=== PATIENT | female | born 1935 | race Caucasian/White ===

== ENCOUNTER → 2016-09-12 | Outpatient (CLI) | payer MEDICARE, BC, OTHER ==
[~2016-09-12] MED LIST: ACET-654 PO; CETI10TA PO; DYAZ37.5 PO; LEVO50TA5 PO; NORC1TAB4 PO
--- NOTE | 2016-09-12 10:35 | REP ---
Right foot four views : There is no fracture or dislocation. Mineralization and joint spaces are normal. There are no calcifications or foreign bodies. Impression: Negative right foot . Signed by Moisés Noe MD 09/12/2016 10:27 A
== END ==
LOC: M RAD 09:52
PROVIDERS: ATTEND Nurse Practitioner
DX: M79.671 Pain in right foot (principal)

== ENCOUNTER → 2016-09-26 | Outpatient (CLI) | payer MEDICARE, OTHER | LOC: M PAIN 15:20 | PROVIDERS: ATTEND Nurse Practitioner Family | DX: G89.29 Other chronic pain (principal); M79.671 Pain in right foot; D64.9 Anemia, unspecified; I10 Essential (primary) hypertension; E07.9 Disorder of thyroid, unspecified; J42 Unspecified chronic bronchitis; R73.03 Prediabetes; Z79.1 Long term (current) use of non-steroidal anti-inflammatories (NSAID); Z79.899 Other long term (current) drug therapy; Z87.891 Personal history of nicotine dependence; Z90.49 Acquired absence of other specified parts of digestive tract ==

== ENCOUNTER → 2016-10-05 | Outpatient (CLI) | payer MEDICARE, BC, OTHER ==
[~2016-10-05] MED LIST changes: -ACET-654 PO; +ACET1TAB17 PO
--- NOTE | 2016-10-05 15:12 | REP ---
MRI STUDY OF THE RIGHT FOOT WITHOUT CONTRAST: HISTORY: Pain in the right foot. Pain worse dorsally and medially. Comparison radiographs September 12, 2016. TECHNIQUE: Sagittal axial and coronal imaging planes are utilized. T1 proton density T2-weighted scans are included with and without fat saturation. MRI FINDINGS: There is markedly abnormal increased T2 signal with some corresponding decreased T1 signal in the this patient's right midfoot including the navicula, cuboid, and all three cuneiform bones. There is some increased signal intensity in the proximal end of the metatarsals numbered 2, 3, and to some degree 4. There is periarticular soft tissue edema and some swelling diffusely in the midfoot. No significant joint effusion is seen. No fracture is evident. No bony erosive change is appreciated. No mass lesion is observed. IMPRESSION: Markedly abnormal increased T2 decreased T1-weighted signal intensity in the midfoot tarsal bones and in several of the proximal metatarsals. Stress response, transient marrow edema syndrome versus extensive contusion post trauma. Signed by Leo Diaz MD 10/05/2016 03:35 P
== END ==
LOC: M RAD 12:57
PROVIDERS: ATTEND Nurse Practitioner Family
DX: M79.671 Pain in right foot (principal); J42 Unspecified chronic bronchitis; I10 Essential (primary) hypertension; D50.9 Iron deficiency anemia, unspecified; E03.9 Hypothyroidism, unspecified; M11.20 Other chondrocalcinosis, unspecified site

== ENCOUNTER → 2016-10-11 | Outpatient (CLI) | payer MEDICARE, BC, OTHER ==
--- NOTE | 2016-10-24 00:29 | ECWPNPC ---
PATIENT NAME: SHAAN SINHA : 1935 GENDER: FEMALE VISIT DATE: 10/11/2016 DISCHARGE DATE: 10/11/16 1241 VISIT LOCKED DATE TIME: PHYSICIAN: ARIANA COONEY RESOURCE: ARIANA COONEY REASON FOR APPOINTMENT 1. R FOOT PAIN HISTORY OF PRESENT ILLNESS HISTORY OF PRESENT ILLNESS: HERE FOR F/U ON RIGHT FOOT PAIN.WAS STARTED ON PREDNISONE 5 DAYS AGO BY GHANSHYAM OLIVER [facility].GABAPENTIN 100MG TID IS SOMEWHAT HELPFUL.DENIES SIDE EFFECTS.MRI RIGHT FOOT REVIEWED.SHOWING MARKED SWELLING IN MIDFOOT AND NO EVIDENCE OF FRACTURE OR MASS LESION.RATING PAIN VAS 4/10. PAIN THE PATIENT DESCRIBES THE PAIN... FALL RISK SCREENING: SCREENING :NO FALLS IN THE PAST YEAR CURRENT MEDICATIONS TAKING LEVOTHYROXINE SODIUM 50 MCG TABLET 1 TABLET ON AN EMPTY STOMACH IN THE MORNING ORALLY ONCE A DAY TAKING ANORO ELLIPTA 62.5-25 MCG/INH AEROSOL POWDER BREATH ACTIVATED 1 PUFF INHALATION ONCE A DAY TAKING FERROUS SULFATE 325 (65 FE) MG TABLET 1 TABLET ORALLY ONCE A DAY TAKING TRIAMTERENE-HCTZ 37.5-25 MG TABLET 1 TABLET IN THE MORNING ORALLY ONCE A DAY TAKING GABAPENTIN 100 MG CAPSULE DIRECTED ORALLY TID TAKING LIDOCAINE-PRILOCAINE 2.5-2.5 % CREAM DIRECTED EXTERNALLY APPLY SMALL AMOUNT TO PAINFUL FOOT AREA Q 6 HRS PRN PAIN TAKING VALTREX 1 GM TABLET 1 TABLET ORALLY TID TAKING PREDNISONE 10 MG TABLET 1 TABLET DIRECTED ORALLY 4 TABS X 3 DAYS 3 TABS X 3 DAYS 2 TABS X 3 DAYS 1 TAB X 3 DAYS TAKING ACYCLOVIR 5 % OINTMENT 1 APPLICATION EXTERNALLY TO RIGHT FOOT SIX TIMES A DAY TAKING TURMERIC CURCUMIN 500 MG CAPSULE ORALLY NOT-TAKING IBUPROFEN 200 MG TABLET 1 TABLET WITH FOOD OR MILK NEEDED ORALLY EVERY 6 HRS MEDICATION LIST REVIEWED AND RECONCILED WITH THE PATIENT PAST MEDICAL HISTORY PSEUDOGOUT HYPERTENSION HYPOTHYROIDISM BORDERLINE DIABETES-DIET CONTROLLED ANEMIA ( DONATES BLOOD REGULARILY) COLONOSCOPY IN [place], NO POLYPS, DIVERTICULOSIS-ASYMPTOMATIC DECREASED HEARING (HEARING AIDES DID NOT WORK) CARDIAC STRESS TEST AND ECHO IN [facility]-REPORTED NORMAL PFT'S IN [facility]-REPORTED NORMAL-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 REVIEW OF SYSTEMS REVIEWED BY: PROVIDER: ARIANA COONEY EVP AND CHIEF OPERATING OFFICER . CONSTITUTIONAL: ANY CHANGE IN YOUR MEDICAL CONDITION? YES PT SAW PRIMARY 10/05, AND WAS PUT ON A PREDNISONE TAPER, ACYCLOVIR AND VALCYCLOVIR FOR HER RIGHT FOOT SWELLING/PAIN. PT REPORTS SHE STILL CAN'T BEAR WEIGHT ON IT, BURNING HAS IMPROVED, BUT NOW STATES IT IS A CONSTANT ACHY FEELING. SWELLING HAS IMPROVED.&NBSP;. CHILLS &NBSP;&NBSP; NO&NBSP;. FEVER &NBSP;&NBSP; NO&NBSP;. INFECTION: DO YOU HAVE NEW INFECTIONS? NO . DO YOU HAVE HISTORY OF MRSA? NO . MUSCULOSKELETAL: ANY NEW PATTERNS OF PAIN OR NUMBNESS? NO . GASTROENTEROLOGY: ANY NEW CHANGE IN BOWEL CONTROL? NO . GENITOURINARY: ANY NEW CHANGE IN BLADDER CONTROL? NO . IS THERE A CHANCE YOU COULD BE ? NO . HEMATOLOGY/LYMPH: DO YOU TAKE ANY BLOOD THINNERS? (FOR EXAMPLE- COUMADIN, PLAVIX, AGGRENOX, PLATEL, PRADAXA, OR XARELTO) NO . WHEN WAS YOUR LAST DOSE? DATE: TIME: . NEUROLOGY: HAVE YOU FALLEN IN THE PAST 6 MONTHS? NO . ANY NEW EXTREMITY NUMBNESS OR WEAKNESS? NO . CARDIOLOGY: DO YOU HAVE A PACEMAKER OR DEFIBRILLATOR? NO . RESPIRATORY: HAVE YOU BEEN SICK IN THE PAST WEEK? NO . FEVER NO . FLU LIKE SYMPTOMS? NO . COUGH NO . INTEGUMENTARY: DO YOU HAVE ANY RASHES OR OPEN SORES? NO . ALLERGIC/IMMUNO: ARE YOU ALLERGIC TO SHELLFISH OR IV DYE? NO . ANY NEW ALLERGIES? NO . PSYCHIATRIC: DO YOU HAVE THOUGHTS OF HURTING YOURSELF OR SOMEONE ELSE? NO . ARE YOU ABUSED, NEGLECTED, OR IN AN UNSAFE ENVIRONMENT? NO . ENDOCRINOLOGY: ARE YOU DIABETIC? NO . OTHER: DO YOU NEED ANY PRESCRIPTIONS? NO . IF YES, PLEASE LIST: ____ . ANY NEW PROBLEMS WITH YOUR MEDICATIONS? NO . WHEN DID YOU LAST EAT? ____ . WHEN DID YOU LAST DRINK? ____ . WHAT DID YOU LAST DRINK? ____ . NAME OF PERSON DRIVING YOU HOME? ____ . DO YOU HAVE ANY OTHER QUESTIONS OR CONCERNS NO . VITAL SIGNS WT 110.8 LBS, HT 61", BMI 20.93 INDEX, BP 144/77 MM HG, HR 83 /MIN, RR 16 /MIN, TEMP 97.0 F, OXYGEN SAT % 94%, SAFE IN ENV? (Y/N) YES, NA INITIALS AL 12:14, REVIEWED BY: BRANDON. EXAMINATION GENERAL EXAMINATION: GENERAL APPEARANCE:UNCOMFORTABLE,RUBBING RIGHT FOOT. PSYCHDEPRESSED. HEENT:NORMOCEPHALIC,PERRLA. LUNGS:LUNG KIDD ARE CLEAR TO AUSCULTATION BILATERALLY. GOOD MOVEMENT OF AIR. HEART:S1, S2 IN A REGULAR RATE AND RHYTHM. NO SIGNIFICANT MURMURS, RUBS OR GALLOPS NOTED. ABDOMEN:SOFT AND NOT TENDER. DIAGNOSTIC DATA-XRAY RIGHT FOOT-NEGATIVE. ANKLE / FOOT: FOOT:RIGHT=DORSAL HYPERSENSITIVITY TO LIGHT TOUCH.LINEAR FAINT 3MM MACULAR RASH.. INSPECTION:3-4CM CIRCULAR PINK MACULAR LESION DISTAL ASPECT RIGHT V[place]. RANGE OF MOTION:UNREMARKABLE. ASSESSMENTS RIGHT FOOT PAIN - M79.671 (PRIMARY) TREATMENT RIGHT FOOT PAIN INCREASE GABAPENTIN TABLET, 300 MG, DIRECTED, ORALLY, TID, 30 DAY(S), 90, REFILLS 0 PROCEDURE CODES FA211 ESTABILISHED PATIENT [facility] FACILITY CHARGE G8730 PAIN ASSESS POS TOOL F/U PLAN DOC G8427 DOC MEDS VERIFIED W/PT OR RE DISPOSITION & COMMUNICATION FOLLOW UP 4 WEEKS ELECTRONICALLY SIGNED BY LIONEL MEZA ON 10/23/2016 AT 04:31 PM EDT DISCLAIMER : THIS IS A VISIT SUMMARY EXTRACTED FROM THE [employer] CHART. IT IS NOT A COPY OF THE [employer] PROGRESS NOTE. MTDD
== END ==
LOC: M PAIN 12:00
PROVIDERS: ATTEND Nurse Practitioner Family
DX: G89.29 Other chronic pain (principal); M79.671 Pain in right foot; I10 Essential (primary) hypertension; E03.9 Hypothyroidism, unspecified; M10.9 Gout, unspecified; R73.03 Prediabetes; D64.9 Anemia, unspecified; Z79.52 Long term (current) use of systemic steroids; Z79.899 Other long term (current) drug therapy

== ENCOUNTER → 2016-11-08 | Outpatient (CLI) | payer MEDICARE, BC, OTHER ==
--- NOTE | 2016-11-09 00:34 | ECWPNPC ---
PATIENT NAME: SHAAN SINHA : 1935 GENDER: FEMALE VISIT DATE: 11/08/2016 DISCHARGE DATE: 11/08/16 1258 VISIT LOCKED DATE TIME: PHYSICIAN: ARIANA COONEY RESOURCE: ARIANA COONEY REASON FOR APPOINTMENT 1. R FOOT HISTORY OF PRESENT ILLNESS HISTORY OF PRESENT ILLNESS: HERE FOR F/U AND MANAGEMENT OF RIGHT FOOT PAIN.RATING PAIN VAS 0/10.STATES PAIN WENT AWAY DAY AFTER LAST DOSE OF PREDNISONE.CURRENTLY TAKING GABAPENTIN 100MG DAILY.PATIENT WANTS TO DISCONTINUE.FULL WEIGHT BEARING WITHOUT PAIN. PAIN THE PATIENT DESCRIBES THE PAIN... FALL RISK SCREENING: SCREENING :NO FALLS IN THE PAST YEAR CURRENT MEDICATIONS TAKING LEVOTHYROXINE SODIUM 50 MCG TABLET 1 TABLET ON AN EMPTY STOMACH IN THE MORNING ORALLY ONCE A DAY TAKING ANORO ELLIPTA 62.5-25 MCG/INH AEROSOL POWDER BREATH ACTIVATED 1 PUFF INHALATION ONCE A DAY TAKING TRIAMTERENE-HCTZ 37.5-25 MG TABLET 1 TABLET IN THE MORNING ORALLY ONCE A DAY TAKING TURMERIC CURCUMIN 500 MG CAPSULE ORALLY TAKING GABAPENTIN 300 MG TABLET DIRECTED ORALLY TID NOT-TAKING FERROUS SULFATE 325 (65 FE) MG TABLET 1 TABLET ORALLY ONCE A DAY NOT-TAKING LIDOCAINE-PRILOCAINE 2.5-2.5 % CREAM DIRECTED EXTERNALLY APPLY SMALL AMOUNT TO PAINFUL FOOT AREA Q 6 HRS PRN PAIN NOT-TAKING VALTREX 1 GM TABLET 1 TABLET ORALLY TID NOT-TAKING PREDNISONE 10 MG TABLET 1 TABLET DIRECTED ORALLY 4 TABS X 3 DAYS 3 TABS X 3 DAYS 2 TABS X 3 DAYS 1 TAB X 3 DAYS NOT-TAKING ACYCLOVIR 5 % OINTMENT 1 APPLICATION EXTERNALLY TO RIGHT FOOT SIX TIMES A DAY NOT-TAKING IBUPROFEN 200 MG TABLET 1 TABLET WITH FOOD OR MILK NEEDED ORALLY EVERY 6 HRS MEDICATION LIST REVIEWED AND RECONCILED WITH THE PATIENT PAST MEDICAL HISTORY PSEUDOGOUT HYPERTENSION HYPOTHYROIDISM BORDERLINE DIABETES-DIET CONTROLLED ANEMIA ( DONATES BLOOD REGULARILY) COLONOSCOPY IN [place], NO POLYPS, DIVERTICULOSIS-ASYMPTOMATIC DECREASED HEARING (HEARING AIDES DID NOT WORK) CARDIAC STRESS TEST AND ECHO IN [facility]-REPORTED NORMAL PFT'S IN [facility]-REPORTED NORMAL-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 SURGICAL HISTORY SMALL BOWEL RESECTION 11/01/2015 BILATERAL CATARACTS REMOVED YEARS AGO BILATERAL CARPEL TUNNEL YEARS AGO APPENDECTOMY AGE 19 THEN ADHESIONS WRAPPED AROUND SMALL BOWEL CAUSING SURGERY 2016 OF BOWELS YEARS AGO HYSTERECTOMY AGE 32 TONSILECTOMY AGE 11 REVIEW OF SYSTEMS REVIEWED BY: PROVIDER: ARIANA FLOWERS . CONSTITUTIONAL: ANY CHANGE IN YOUR MEDICAL CONDITION? YES, PAIN HAS RESOLVED . CHILLS NO . FEVER NO . INFECTION: DO YOU HAVE NEW INFECTIONS? NO . DO YOU HAVE HISTORY OF MRSA? NO . MUSCULOSKELETAL: ANY NEW PATTERNS OF PAIN OR NUMBNESS? NO . GASTROENTEROLOGY: ANY NEW CHANGE IN BOWEL CONTROL? NO . GENITOURINARY: ANY NEW CHANGE IN BLADDER CONTROL? NO . IS THERE A CHANCE YOU COULD BE ? NO . HEMATOLOGY/LYMPH: DO YOU TAKE ANY BLOOD THINNERS? (FOR EXAMPLE- COUMADIN, PLAVIX, AGGRENOX, PLATEL, PRADAXA, OR XARELTO) NO . WHEN WAS YOUR LAST DOSE? DATE: TIME: . NEUROLOGY: HAVE YOU FALLEN IN THE PAST 6 MONTHS? NO . ANY NEW EXTREMITY NUMBNESS OR WEAKNESS? NO . CARDIOLOGY: DO YOU HAVE A PACEMAKER OR DEFIBRILLATOR? NO . RESPIRATORY: HAVE YOU BEEN SICK IN THE PAST WEEK? NO . FEVER NO . FLU LIKE SYMPTOMS? NO . COUGH NO . INTEGUMENTARY: DO YOU HAVE ANY RASHES OR OPEN SORES? NO . ALLERGIC/IMMUNO: ARE YOU ALLERGIC TO SHELLFISH OR IV DYE? NO . ANY NEW ALLERGIES? NO . PSYCHIATRIC: DO YOU HAVE THOUGHTS OF HURTING YOURSELF OR SOMEONE ELSE? NO . ARE YOU ABUSED, NEGLECTED, OR IN AN UNSAFE ENVIRONMENT? NO . ENDOCRINOLOGY: ARE YOU DIABETIC? NO . OTHER: DO YOU NEED ANY PRESCRIPTIONS? NO . IF YES, PLEASE LIST: ____ . ANY NEW PROBLEMS WITH YOUR MEDICATIONS? NO . WHEN DID YOU LAST EAT? ____ . WHEN DID YOU LAST DRINK? ____ . WHAT DID YOU LAST DRINK? ____ . NAME OF PERSON DRIVING YOU HOME? ____ . DO YOU HAVE ANY OTHER QUESTIONS OR CONCERNS NO . VITAL SIGNS WT 112.8 LBS, HT 61", BMI 21.31 INDEX, BP 146/71 MM HG, HR 78 /MIN, RR 16 /MIN, TEMP 96.8 F, OXYGEN SAT % 95%, SAFE IN ENV? (Y/N) Y, NA INITIALS AC 1204, REVIEWED BY: EM. EXAMINATION GENERAL EXAMINATION: GENERAL APPEARANCE:COMFORTABLE,HAPPY. PSYCHAFFECT NORMAL. HEENT:NORMOCEPHALIC,PERRLA. LUNGS:LUNG KIDD ARE CLEAR TO AUSCULTATION BILATERALLY. GOOD MOVEMENT OF AIR. HEART:S1, S2 IN A REGULAR RATE AND RHYTHM. NO SIGNIFICANT MURMURS, RUBS OR GALLOPS NOTED. ANKLE / FOOT: FOOT:RIGHT, NORMAL EXAM. ASSESSMENTS RIGHT FOOT PAIN - M79.671 (PRIMARY) TREATMENT RIGHT FOOT PAIN STOP GABAPENTIN TABLET, 300 MG, DIRECTED, ORALLY, TID NOTES: FALLS CARE PLAN: 1. RECOMMEND REMOVING ALL THROW RUGS. 2. RECOMMEND NIGHT LIGHTS 3. RECOMMEND WEARING RUBBER SOLED SHOES AND TO NOT GO BAREFOOT. 4.. ADVISED TO CHANGE POSITION SLOWLY FROM SUPINE TO STANDING TO AVOID DIZZINESS. 5. ADVISED TO USE ASSISTIVE DEVICE SUCH CANE OR WALKER 6. USE [employer] OR KEEP PORTABLE PHONE READILY AVAILABLE. PROCEDURE CODES FA211 ESTABILISHED PATIENT [facility] FACILITY CHARGE G8783 BP SCR PRFRM RCMDD DEFIND SCR INTVL G8730 PAIN ASSESS POS TOOL F/U PLAN DOC 3016F PT SCRND UNHLTHY OH USE 1036F TOBACCO NON-USER 0518F FALL PLAN OF CARE DOCD G8427 DOC MEDS VERIFIED W/[place] 3288F FALL RISK ASSESSMENT DOCD 1124F ACP DISCUSS-NO [id number] DOCD DISPOSITION & COMMUNICATION FOLLOW UP PT WILL CALL ELECTRONICALLY SIGNED BY LIONEL MEZA ON 11/08/2016 AT 01:16 PM EDT DISCLAIMER : THIS IS A VISIT SUMMARY EXTRACTED FROM THE [employer] CHART. IT IS NOT A COPY OF THE [employer] PROGRESS NOTE. MTDD
== END ==
LOC: M PAIN 12:00
PROVIDERS: ATTEND Nurse Practitioner Family
DX: G89.29 Other chronic pain (principal); M79.671 Pain in right foot; I10 Essential (primary) hypertension; E03.9 Hypothyroidism, unspecified; R73.03 Prediabetes; D64.9 Anemia, unspecified; H91.93 Unspecified hearing loss, bilateral; Z79.899 Other long term (current) drug therapy

== ENCOUNTER → 2024-10-13 | Outpatient (CLI) | payer MEDICARE, BC ==
[~2024-10-13] MED LIST changes: -ACET1TAB17 PO; +ACET1TAB55 PO; -NORC1TAB4 PO; +NORC1TAB7 PO
[2024-10-13 16:18] LABS: ALT/SGPT 11.0 U/L (7.0-40); AST/SGOT 22.0 U/L (<34); CALCIUM LEVEL 9.6 MG/DL (8.3-10.6); CARBON DIOXIDE LEVEL 32.0 MMOL/L (20-31); CHLORIDE LEVEL 93.0 MMOL/L (98-107); CHOLESTEROL LEVEL 212.0 MG/DL (<200); CHOLESTEROL RISK RATIO 2.23 (<5); CREATININE FOR GFR 0.51 MG/DL (0.55-1.30); GLOMERULAR FILTRATION RATE 89.7 (>32); LDL CHOLESTEROL 104.3 MG/DL (<100); NON-HDL-C 117.3 MG/DL; POTASSIUM SERUM 3.7 MMOL/L (3.5-5.1); SODIUM LEVEL 132.0 MMOL/L (136-145); TRIGLYCERIDES LEVEL 65.0 MG/DL (<150)
[2024-10-13 16:19] LABS: FREE T4 1.27 NG/DL (0.89-1.76)
[2024-10-13 16:29] LABS: ESTIMATED AVERAGE GLUCOSE 120.0 MG/DL (60-110)
[2024-10-13 16:42] LABS: CREATININE, URINE 19.4 MG/DL; MALB URINE SIEMENS < 3.0 MG/L
== END ==
LOC: M PLALAB 11:59
PROVIDERS: ATTEND Student in an Organized Health Care Education/Training Program
DX: Z00.00 Encounter for general adult medical examination without abnormal findings (principal); I10 Essential (primary) hypertension; E03.9 Hypothyroidism, unspecified; Z79.899 Other long term (current) drug therapy

== ENCOUNTER → 2025-01-05 | Outpatient (CLI) | payer MEDICARE, BC | LOC: M WHC 09:52 | PROVIDERS: ATTEND Student in an Organized Health Care Education/Training Program | DX: Z00.00 Encounter for general adult medical examination without abnormal findings (principal); M81.0 Age-related osteoporosis without current pathological fracture ==

== ENCOUNTER → 2025-02-03 | Outpatient (CLI) | payer MEDICARE, BC ==
[2025-02-03 14:27] LABS: CALCIUM LEVEL 9.4 MG/DL (8.3-10.6); CARBON DIOXIDE LEVEL 34.0 MMOL/L (20-31); CHLORIDE LEVEL 89.0 MMOL/L (98-107); CREATININE FOR GFR 0.54 MG/DL (0.55-1.30); GLOMERULAR FILTRATION RATE 88.0 (>32); POTASSIUM SERUM 4.2 MMOL/L (3.5-5.1); SODIUM LEVEL 130.0 MMOL/L (136-145)
== END ==
LOC: M PLALAB 10:54
PROVIDERS: ATTEND Student in an Organized Health Care Education/Training Program
DX: E87.1 Hypo-osmolality and hyponatremia (principal)

== ENCOUNTER → 2025-02-18 | Outpatient (CLI) | payer MEDICARE, BC | LOC: M CARPUL 13:56 | PROVIDERS: ATTEND Student in an Organized Health Care Education/Training Program | DX: J44.9 Chronic obstructive pulmonary disease, unspecified (principal) ==